=== PATIENT | male | born 1975 ===

== ENCOUNTER 2016-06-13 15:11 | Emergency (ER) | payer BC ==
[2016-06-13 15:58] VITALS: BP 99/63; PULSE 78; RESP 18; TEMP 98.8; O2SAT 100
--- NOTE | 2016-06-13 16:46 | C.PDOC ---
History Of Present Illness 40 YO MALE COME IN FOR EVALUATION OF LEFT KNEE PAIN FOR PAST MONTH, INTERMITTENT , WORSE WITH MOVEMENT. OTHERWISE, PT DENIES FEVER, CHILLS, KNOWN TRAUMA OR INJURY, SWELLING, SKIN CHANGES OVER KNEE, DENIES WEAKNESS, SENSORY OR VASCULAR DEFICITS TO LEFT LEG. AMBULATE TO ED FOR EVALUATION, NOT IN ANY APPARENT DISTRESS. Time Seen by Provider: 06/13/16 15:44 Chief Complaint (Nursing): Lower Extremity Problem/Injury History Per: Patient Onset/Duration Of Symptoms: Intermittent Episodes, Gradual Current Symptoms Are (Timing): Still Present Past Medical History Reviewed: Historical Data, Nursing Documentation, Vital Signs Vital Signs: Last Vital Signs Temp 98.8 F 06/13/16 15:49 Pulse 78 06/13/16 15:49 Resp 18 06/13/16 15:49 BP 99/63 L 06/13/16 15:49 Pulse Ox 100 06/13/16 15:49 - Medical History PMH: HTN Surgical History: Endoscopy Family History: States: No Known Family Hx - Social History Hx Alcohol Use: No Hx Substance Use: No Review Of Systems Except As Marked, All Systems Reviewed And Found Negative. Constitutional: Negative for: Fever, Chills ENT: Negative for: Throat Pain Genitourinary: Negative for: Incontinence Musculoskeletal: Positive for: Other (knee pain, left) Skin: Negative for: Bruising Neurological: Negative for: Weakness, Numbness Physical Exam - Physical Exam Appears: Well, Non-toxic, No Acute Distress Skin: Normal Color, Warm, No Rash, No Ecchymosis Extremity: Normal ROM (of B/L knees), Tenderness (Left knee tenderness over lateral and medial aspect. NO palpable deformity, no edema. no skin changes.), No Calf Tenderness (Left), No Deformity, No Swelling Extremity: Bilateral: Atraumatic Neurological/Psych: Oriented x3, Normal Speech, Normal Motor, Normal Sensation, Normal Reflexes ED Course And Treatment O2 Sat by Pulse Oximetry: 100 Pulse Ox Interpretation: Normal - Other Rad Left knee X-Ray: Interpreted by Me, Viewed By Me Interpretation: no acute fx or dislocation Progress Note: On re-eavluation, pt is afebrile, hemodynamicaly st able. Non- toxic. Left knee: exam c/w knee arthralgia. FAROM, no neurovascular deficits. xray review and appears normal. Jaren wrap applied to left knee. Pt advised and ref. to F/U with Ortho in 2-3 days for re-eval. return if any new changes. Disposition Counseled Patient/Family Regarding: Studies Performed, Diagnosis, Need For Followup, Rx Given - Disposition Referrals: Luisito Ferguson MD [Staff Provider] - Disposition: HOME/ ROUTINE Disposition Time: 16:44 Condition: STABLE Additional Instructions: RICE- REST, ICE, COMPRESSION, ELEVATION TAKE MEDICATION PRESCRIBED FOLLOW UP WITH PMD AND ORTHOPEDIST IN 2-3 DAYS FOR RE-EVALUATION. RETURN TO ED IF ANY WORSENING OR NEW CHANGES. Prescriptions: traMADol [Ultram] 50 mg PO TID #7 tab Instructions: Knee Pain (ED) - Clinical Impression Clinical Impression: Arthralgia of knee
--- NOTE | 2016-06-14 12:30 | RAD ---
PROCEDURE: Left Knee Radiographs. HISTORY: Pain. COMPARISON: None. FINDINGS: BONES: Normal. No fracture. JOINTS: Normal. No osteoarthritis. JOINT EFFUSION: None. OTHER FINDINGS: None. IMPRESSION: Normal radiographs of the left knee.
== END 2016-06-13 17:08 | disposition home or self-care (01) ==
LOC: C.ER 15:11
DX: M25.562 Pain in left knee (principal)

== ENCOUNTER 2016-09-01 19:59 | Emergency (ER) | payer BC ==
[2016-09-01 20:22] VITALS: BP 131/83; PULSE 102; RESP 17; TEMP 99.6; O2SAT 99
[2016-09-01] MEDS ORDERED: Naproxen 550 mg Tab PO STA (20:56)
[2016-09-01] MEDS ORDERED: Naproxen 550 mg Tab PO ONE (21:12)
--- NOTE | 2016-09-01 21:30 | C.PDOC ---
History Of Present Illness 41 year old patient presents to the ED complaining of right wrist pain. Patient states he was moving things from a shed and hurt his wrist prior to arrival. Notes it radiated to the pinky. Denies direct truama. Patient is right hand dominant. No change in sensation to the right hand. Patient denies fever, numbness or weakness. Time Seen by Provider: 09/01/16 20:33 Chief Complaint (Nursing): Upper Extremity Problem/Injury History Per: Patient History/Exam Limitations: no limitations Onset/Duration Of Symptoms: Hrs (prior to arrival) Current Symptoms Are (Timing): Still Present Quality: "Pain" Severity: Mild Pain Scale Rating Of: 3 Recent travel outside of the [place]: No Past Medical History Reviewed: Historical Data, Nursing Documentation, Vital Signs Vital Signs: Last Vital Signs Temp 99.6 F 09/01/16 20:19 Pulse 102 H 09/01/16 20:19 Resp 17 09/01/16 20:19 BP 131/83 09/01/16 20:19 Pulse Ox 99 09/01/16 21:56 - Medical History PMH: HTN Surgical History: Endoscopy Family History: States: Unknown Family Hx - Social History Hx Alcohol Use: No Hx Substance Use: No - Immunization History Hx Tetanus Toxoid Vaccination: Yes Hx Influenza Vaccination: No Hx Pneumococcal Vaccination: No Review Of Systems Except As Marked, All Systems Reviewed And Found Negative. Constitutional: Negative for: Fever Musculoskeletal: Positive for: Other (right wrist) Neurological: Negative for: Weakness, Numbness Physical Exam - Physical Exam Appears: Non-toxic, No Acute Distress, Other (Pt playing game on phone using both hands without distress) Skin: Warm, Dry Head: Atraumatic, Normacephalic Eye(s): bilateral: Normal Inspection, EOMI Nose: Normal Oral Mucosa: Moist Neck: Normal ROM, Supple Chest: Symmetrical Respiratory: No Accessory Muscle Use Extremity: Normal ROM (though ellicits pain), Tenderness, Capillary Refill (<2 seconds), No Deformity, No Swelling, Other (mild tenderness To the ulnar aspect of the right hand. normal radial. no deformity. no swelling. <2 seconds capillary refill. ) Extremity: Bilateral: Atraumatic, Normal Color And Temperature, Normal ROM Pulses: Left Radial: Normal, Right Radial: Normal Neurological/Psych: Oriented x3, Normal Motor, Normal Sensation Gait: Steady ED Course And Treatment O2 Sat by Pulse Oximetry: 99 (room air) Pulse Ox Interpretation: Normal - Other Rad right wrist x-ray X-Ray: Viewed By Me Interpretation: no fracture or dislocation Progress Note: Plan: Naproxen, Right wrist x-ray. Right wrist immobilizer applied by the server support technician. Upon reassessment, patient is resting comfortably. His pain has improved after medication was given. Patient is discharged and instructed to follow up with PMD. Return if symptoms worsen/persist. Disposition - Disposition Referrals: Luisito Ferguson MD [Staff Provider] - Disposition: HOME/ ROUTINE Disposition Time: 21:29 Condition: GOOD Additional Instructions: Rest, ice and elevate the area. Follow up with ortho in 1-2 days. Prescriptions: Naproxen [Naprosyn] 1 tab PO BID PRN #20 tab PRN Reason: Pain Instructions: Wrist Injury (ED) - Clinical Impression Clinical Impression: Wrist sprain - PA / [facility] NURSE STAFF / Resident Statement MD/DO has reviewed & agrees with the documentation as recorded. - Scribe Statement The provider has reviewed the documentation as recorded by the Scribe Mariya Briggs All medical record entries made by the Scribe were at my direction and personally dictated by me. I have reviewed the chart and agree that the record accurately reflects my personal performance of the history, physical exam, medical decision making, and the department course for this patient. I have also personally directed, reviewed, and agree with the discharge instructions and disposition.
--- NOTE | 2016-09-02 11:02 | RAD ---
PROCEDURE: Right Wrist Radiographs. HISTORY: Trauma COMPARISON: None. FINDINGS: BONES: Bone alignment is normal. No acute fracture. JOINTS: The proximal and distal carpal rows are maintained. The joint spaces are preserved. No dislocation. SOFT TISSUES: Normal. OTHER FINDINGS: None. IMPRESSION: No acute fracture or dislocation.
--- NOTE | 2016-09-02 11:03 | RAD ---
PROCEDURE: Right small finger radiographs. HISTORY: Trauma COMPARISON: None. TECHNIQUE: AP radiograph of the right hand, as well as spot oblique and lateral images of small finger were obtained. FINDINGS: RIGHT SMALL FINGER: Normal right small finger, without fracture or focal lesion. Remainder of the right hand (as seen on the AP view) grossly unremarkable. JOINTS: Normal. SOFT TISSUES: Normal. OTHER FINDINGS: None. IMPRESSION: No acute fracture or dislocation.
== END 2016-09-01 21:46 | disposition home or self-care (01) ==
LOC: MERGE 19:59 → C.ER 19:59 → SUPCPDRO 19:59 → C.ER 21:46
DX: S63.501A Unspecified sprain of right wrist, initial encounter (principal); X50.9XXA Other and unspecified overexertion or strenuous movements or postures, initial encounter; Y93.89 Activity, other specified; Y92.89 Other specified places as the place of occurrence of the external cause

== ENCOUNTER 2017-06-03 10:56 | Emergency (ER) | payer BC ==
[2017-06-03] MEDS ORDERED: Tdap Vaccine 0.5 ml Vial (10-64 yrs) IM ONE (11:31)
[2017-06-03] MEDS ORDERED: Lidocaine 1% Inj (20ml) INFIL ONE (11:31)
[2017-06-03] MEDS ORDERED: Lidocaine 2% Inj (20ml) INFIL ONE (11:34)
[2017-06-03] MEDS ORDERED: Lidocaine 2% Inj (20ml) ONE (11:36)
[2017-06-03] MEDS ORDERED: Tetanus/Diphtheria Toxoids 0.5 ml Syringe IM ONE (11:37)
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
[2017-06-03] MEDS ORDERED: Bacitracin 500 Units/gm Oint Foilpak UD TOP ONE (12:12)
[2017-06-03] MEDS ORDERED: Bacitracin 500 Units/gm Oint Foilpak UD ONE (12:14)
[2017-06-03 12:32] VITALS: BP 122/64; PULSE 86; RESP 18; TEMP 98.5
[2017-06-03 21:05] VITALS: O2SAT 96
== END 2017-06-03 12:32 | disposition home or self-care (01) ==
LOC: C.ER 10:56
DX: S81.011A Laceration without foreign body, right knee, initial encounter (principal); V18.0XXA Pedal cycle driver injured in noncollision transport accident in nontraffic accident, initial encounter; Y93.55 Activity, bike riding

== ENCOUNTER 2017-06-20 18:08 | Emergency (ER) | payer BC ==
[2017-06-20 18:14] VITALS: BMI 29.9
[2017-06-20 18:15] VITALS: BP 101/66; PULSE 66; RESP 18; TEMP 98.8; O2SAT 100
--- NOTE | 2017-06-20 19:36 | C.PDOC ---
History Of Present Illness Patient presents to ER for suture removal from right knee after laceration repair on 06/03. Denies any fever, bleeding, discharge, swelling or other complaints. Time Seen by Provider: 06/20/17 19:15 Chief Complaint (Nursing): Suture/Staple Removal History Per: Patient History/Exam Limitations: no limitations Onset/Duration Of Symptoms: Days Ago Past Medical History Reviewed: Historical Data, Nursing Documentation, Vital Signs Vital Signs: Last Vital Signs Temp 98.8 F 06/20/17 18:14 Pulse 66 06/20/17 18:14 Resp 18 06/20/17 18:14 BP 101/66 06/20/17 18:14 Pulse Ox 100 06/20/17 19:36 - Medical History PMH: HTN Surgical History: Endoscopy - [facility] Procedures APPLICATION OF SPLINT (09/25/02) Family History: States: Unknown Family Hx - Social History Hx Alcohol Use: No Hx Substance Use: No - Immunization History Hx Tetanus Toxoid Vaccination: Yes Hx Influenza Vaccination: No Hx Pneumococcal Vaccination: No Review Of Systems Except As Marked, All Systems Reviewed And Found Negative. Skin: Positive for: Other (sutured wound to knee) Physical Exam - Physical Exam Appears: Non-toxic, No Acute Distress Skin: Warm, Dry, No Rash, Other (3 sutures intact to lateral right knee) Head: Atraumatic, Normacephalic Eye(s): bilateral: Normal Inspection, EOMI Neck: Normal ROM Chest: Symmetrical Extremity: Bilateral: Atraumatic, Normal Color And Temperature, Normal ROM Neurological/Psych: Oriented x3, Normal Speech Gait: Steady ED Course And Treatment O2 Sat by Pulse Oximetry: 100 Medical Decision Making Medical Decision Makin sutures removed without any difficulty. Patient stable for discharge Disposition Counseled Patient/Family Regarding: Diagnosis, Need For Followup - Disposition Disposition: HOME/ ROUTINE Disposition Time: 19:36 Condition: GOOD Instructions: Stitches Removal Forms: [employer] (Mongolian) - POA Present On Arrival: None - Clinical Impression Clinical Impression: Removal of suture
== END 2017-06-20 19:41 | disposition home or self-care (01) ==
LOC: C.ER 18:08
DX: Z48.02 Encounter for removal of sutures (principal)